=== PATIENT | male | born 1985 | race Two or more races ===

== ENCOUNTER 2016-12-25 18:14 | Emergency (ER) | payer SELFPAY ==
[~2016-12-25] VITALS: Ht 165.1 cm; Wt 70.8 kg
[2016-12-25 18:30] VITALS: BP 127/80
== END 2016-12-25 21:50 | disposition home or self-care (01) ==
LOC: ER 18:14
DX: J02.9 Acute pharyngitis, unspecified (principal); F41.9 Anxiety disorder, unspecified; Z88.0 Allergy status to penicillin